=== PATIENT | male | born 1955 | race Caucasian/White ===

== ENCOUNTER 2017-12-30 11:00 | Day surgery (SDC) | payer OTHER ==
[~2017-12-30 11:00] MED LIST: PROPOFOL 200 MG INJ
[2017-12-30 12:26] LABS: ADD MAN DIFF? NO
[2017-12-30 12:30] LABS: BASOPHILS % 0.3 % (0.0-2.0); EOSINOPHILS # 0.1 10^3/ul (0.0-0.5); EOSINOPHILS % 2.3 % (0.0-7.0); HEMATOCRIT 40.5 % (42.0-52.0); LYMPHOCYTES # 1.8 10^3/ul (0.8-2.9); LYMPHOCYTES % 29.3 % (15.0-51.0); MEAN CORPUSCULAR HEMOGLOBIN 30.9 pg (29.0-33.0); MEAN CORPUSCULAR HGB CONC 34.6 g/dl (32.0-37.0); MEAN CORPUSCULAR VOLUME 89.4 fl (82.0-101.0); MEAN PLATELET VOLUME 10.9 fl (7.4-10.4); MONOCYTE # 0.5 10^3/ul (0.3-0.9); MONOCYTES % 8.2 % (0.0-11.0); NEUTROPHIL # 3.6 10^3/ul (1.6-7.5); NEUTROPHILS % 59.4 % (39.0-77.0); PLATELET COUNT 212 10^3/UL (140-415); RED BLOOD COUNT 4.53 10^6/ul (4.70-6.10); RED CELL DISTRIBUTION WIDTH 12.8 % (11.5-14.5)
[2017-12-30 12:50] LABS: INR 0.93; PARTIAL THROMBOPLASTIN TIME 27.3 Sec (23.0-35.0); PROTIME 12.6 Sec (11.9-14.9)
[2017-12-30 13:06] LABS: ALANINE AMINOTRANSFERASE 26 IU/L (13-69); ALBUMIN 4.3 g/dl (3.3-4.9); ALBUMIN/GLOBULIN RATIO 1.43; ALKALINE PHOSPHATASE 83 IU/L (42-121); ANION GAP 8 (5-13); ASPARTATE AMINO TRANSFERASE 31 IU/L (15-46); BILIRUBIN,INDIRECT 1.1 mg/dl (0-1.1); BILIRUBIN,TOTAL 1.1 mg/dl (0.2-1.3); BLOOD UREA NITROGEN 11 mg/dl (7-20); CALCIUM 9.8 mg/dl (8.4-10.2); CARBON DIOXIDE 30 mmol/L (21-31); CHLORIDE 103 mmol/L (97-110); CREATININE 0.77 mg/dl (0.61-1.24); Estimated GFR > 60 mL/min (>60); GLUCOSE 126 mg/dl (70-220); POTASSIUM 4.1 mmol/L (3.5-5.1); SODIUM 141 mmol/L (135-144); TOTAL PROTEIN 7.3 g/dl (6.1-8.1)
[2017-12-30] MEDS ORDERED: IOHEXOL 300MG/ML 30 ML BTL (13:52)
[2017-12-30] MEDS ORDERED: hydrALAzine 20 MG INJ IV (14:00)
[2017-12-30] MEDS ORDERED: LABETALOL HCL 20MG INJ IV (14:00)
[2017-12-30] MEDS ORDERED: IPRATROPIUM (NEB) 0.5 MG/2.5 ML AMP HHN (14:00)
[2017-12-30] MEDS ORDERED: ONDANSETRON 4 MG INJ IV (14:00)
[2017-12-30] MEDS ORDERED: FENTAnyl 50 MCG/ML VIAL IV (14:00)
[2017-12-30] MEDS ORDERED: HYDROmorphONE 1 MG/5 ML IV SYRINGE IV (14:00)
[2017-12-30] MEDS ORDERED: FENTAnyl 50 MCG/ML VIAL (14:05)
[2017-12-30] MEDS ORDERED: PROPOFOL 20 ML (14:05)
[2017-12-30] MEDS ORDERED: MIDAZOLAM 1 MG/ML 2 ML INJ (14:05)
[2017-12-30] MEDS ORDERED: PHENYLephrine (100 MCG/ML) 5ML SYG (15:04)
== END 2017-12-30 16:45 | disposition home or self-care (01) ==
LOC: GIL 11:00 → SDS 11:00 → GIL 16:45
DX: K22.2 Esophageal obstruction (principal); I10 Essential (primary) hypertension; E11.9 Type 2 diabetes mellitus without complications
CPT/HCPCS: 43249; 74330; 80053; 82962; 85025; 85610; 85730; 93005

== ENCOUNTER 2018-01-28 09:14 | Day surgery (SDC) | payer OTHER ==
[~2018-01-28 09:14] MED LIST changes: +LIDOCAINE 2% (SDV) 5 ML INJ; -PROPOFOL 200 MG INJ
[2018-01-28] MEDS ORDERED: FENTAnyl 50 MCG/ML VIAL IV ×2 (11:00)
[2018-01-28] MEDS ORDERED: HYDROmorphONE 1 MG/5 ML IV SYRINGE IV ×2 (11:00)
[2018-01-28] MEDS ORDERED: METOCLOPRAMIDE 10 MG INJ IV (11:00)
[2018-01-28] MEDS ORDERED: ONDANSETRON 4 MG INJ IV (11:00)
[2018-01-28] MEDS ORDERED: IOHEXOL 300MG/ML 30 ML BTL (11:23)
[2018-01-28] MEDS ORDERED: PROPOFOL 20 ML (11:39)
== END 2018-01-28 14:00 | disposition home or self-care (01) ==
LOC: SDS 09:14
DX: K22.2 Esophageal obstruction (principal)
CPT/HCPCS: 43249; 82962

== ENCOUNTER 2018-02-18 10:35 | Day surgery (SDC) | payer OTHER | END 2018-02-18 16:28 | disposition home or self-care (01) | LOC: GIL 10:35 | DX: K22.2 Esophageal obstruction (principal); E11.9 Type 2 diabetes mellitus without complications | CPT/HCPCS: 43249; 82962 ==

== ENCOUNTER 2018-03-12 09:43 | Day surgery (SDC) | payer OTHER ==
[2018-03-12] MEDS ORDERED: PROPOFOL 20 ML (11:06)
[2018-03-12] MEDS ORDERED: LIDOCAINE 2% (SDV) 5 ML INJ (11:07)
[2018-03-12] MEDS ORDERED: LABETALOL HCL 20MG INJ IV (11:30)
[2018-03-12] MEDS ORDERED: FENTAnyl 50 MCG/ML VIAL IV (11:30)
[2018-03-12] MEDS ORDERED: hydrALAzine 20 MG INJ IV (11:30)
[2018-03-12] MEDS ORDERED: EPHEDrine SULFATE 50 MG/5 ML SYG IV (11:30)
[2018-03-12] MEDS ORDERED: ONDANSETRON 4 MG INJ IV (11:30)
== END 2018-03-12 12:17 | disposition home or self-care (01) ==
LOC: GIL 09:43 → SDS 09:43 → GIL 09:43
DX: K22.2 Esophageal obstruction (principal); I10 Essential (primary) hypertension; E11.9 Type 2 diabetes mellitus without complications; E78.5 Hyperlipidemia, unspecified
CPT/HCPCS: 43249; 82962

== ENCOUNTER 2018-05-18 09:20 | Day surgery (SDC) | payer OTHER ==
[2018-05-18] MEDS ORDERED: ONDANSETRON 4 MG INJ IV (11:30)
[2018-05-18] MEDS ORDERED: FENTAnyl 50 MCG/ML VIAL IV (11:30)
[2018-05-18] MEDS ORDERED: ALBUTEROL 0.083% (NEB) 2.5 MG/3 ML AMP HHN (11:30)
[2018-05-18] MEDS ORDERED: ACETAMINOPHEN 500 MG TAB PO (11:30)
== END 2018-05-18 15:29 | disposition home or self-care (01) ==
LOC: GIL 09:20
DX: K22.2 Esophageal obstruction (principal); E11.9 Type 2 diabetes mellitus without complications; E78.5 Hyperlipidemia, unspecified
CPT/HCPCS: 43249; 82962

== ENCOUNTER 2018-06-08 06:27 | Day surgery (SDC) | payer OTHER ==
[2018-06-08] MEDS ORDERED: FENTAnyl 50 MCG/ML VIAL (07:43)
[2018-06-08] MEDS ORDERED: PROPOFOL 20 ML (07:43)
[2018-06-08] MEDS ORDERED: ONDANSETRON 4 MG INJ IV (08:00)
== END 2018-06-08 16:09 | disposition home or self-care (01) ==
LOC: GIL 06:27
DX: K22.2 Esophageal obstruction (principal); K29.00 Acute gastritis without bleeding; K22.5 Diverticulum of esophagus, acquired; E11.9 Type 2 diabetes mellitus without complications
CPT/HCPCS: 43249; 82962

== ENCOUNTER 2018-11-17 08:26 | Day surgery (SDC) | payer OTHER ==
[2018-11-17] MEDS ORDERED: PROPOFOL 20 ML (10:03)
== END 2018-11-17 11:36 | disposition home or self-care (01) ==
LOC: GIL 08:26
DX: K22.2 Esophageal obstruction (principal); E11.9 Type 2 diabetes mellitus without complications; Z79.82 Long term (current) use of aspirin; Z79.84 Long term (current) use of oral hypoglycemic drugs
CPT/HCPCS: 43249